=== PATIENT | male | born 1980 | race Caucasian/White ===

== ENCOUNTER 2019-10-17 05:50 | Emergency (ER) | payer MEDICARE ==
[2019-10-17 05:59] LABS: Glucose,Whole Blood 113 mg/dL (75-99)
[2019-10-17 06:11] VITALS: RESP 18
[2019-10-17 06:14] LABS: Basophils % (A) 1 %; Eosinophils # (A) 0.1 k/uL (0-0.7); Eosinophils % (A) 2 %; HCT 45.4 % (39.0-53.0); HGB 16.1 gm/dL (13.0-17.5); Lymphocytes # (A) 1.7 k/uL (1.0-4.8); Lymphocytes % (A) 36 %; MCH 31.3 pg (25.0-35.0); MCHC 35.5 g/dL (31.0-37.0); MCV 88.3 fL (80.0-100.0); Mean Platelet Volume 6.7; Monocytes # (A) 0.2 k/uL (0-1.0); Monocytes % (A) 5 %; Neutrophils # (A) 2.5 k/uL (1.3-7.7); Neutrophils % (A) 55 %; Platelet Count 163 k/uL (150-450); RBC 5.15 m/uL (4.30-5.90); RDW 13.6 % (11.5-15.5); WBC 4.6 k/uL (3.8-10.6)
[2019-10-17 06:29] LABS: INR 0.9 (<1.2)
[2019-10-17 06:30] LABS: Prothrombin Time 10.1 sec (9.0-12.0)
[2019-10-17 06:33] LABS: ALT 59 U/L (21-72); AST 46 U/L (17-59); African American GFR (CKD) >90 (>60 ml/min/1.73 sqM); Albumin 4.8 g/dL (3.5-5.0); Alkaline Phosphatase 53 U/L (38-126); Anion Gap 11 mmol/L; Blood Urea Nitrogen 22 mg/dL (9-20); Calcium 9.2 mg/dL (8.4-10.2); Carbon Dioxide 25 mmol/L (22-30); Chloride 109 mmol/L (98-107); Glucose 107 mg/dL (74-99); Non-African American GFR(CKD) 87 (>60 ml/min/1.73 sqM); Potassium 4.3 mmol/L (3.5-5.1); Sodium 145 mmol/L (137-145); Total Bilirubin 0.6 mg/dL (0.2-1.3); Total Protein 7.5 g/dL (6.3-8.2)
[2019-10-17 06:35] LABS: Alcohol 176 mg/dL
--- NOTE | 2019-10-17 06:38 | XR ---
EXAMINATION TYPE: XR pelvis AP view DATE OF EXAM: 10/17/2019 CLINICAL HISTORY: Trauma injury with pain. TECHNIQUE: A single AP view of the pelvis is obtained. COMPARISON: None. FINDINGS: There is no acute fracture/dislocation evident in the pelvis. The hip and sacroiliac join ts appear symmetric and unremarkable. Overlying pelvic phleboliths are present. Pubic symphysis is in tact. IMPRESSION: There is no acute fracture or dislocation in the pelvis.
--- NOTE | 2019-10-17 06:40 | XR ---
EXAMINATION TYPE: XR chest 1V portable DATE OF EXAM: 10/17/2019 COMPARISON: Chest x-ray September 20, 2017. HISTORY: Trauma injury with pain. TECHNIQUE: Single AP portable frontal upright view of the chest is obtained. FINDINGS: Overlying EKG leads are present. Slightly suboptimal with incomplete visualization of right lung apex. There is new right basilar linear atelectasis. Left lung is clear. No pleural effusion or pneumothorax is noted bilaterally. The cardiac silhouette size is within normal limits. The visua lized osseous structures are intact. IMPRESSION: New right basilar linear atelectasis.
--- NOTE | 2019-10-17 06:42 | CT ---
EXAMINATION TYPE: CT brain lisandro snider DATE OF EXAM: 10/17/2019 COMPARISON: NONE HISTORY: Fall downstairs injury with headache and neck pain. CT DLP: 1437.7 mGycm. Automated Exposure Control for Dose Reduction was Utilized. TECHNIQUE: CT scan of the head and cervical spine are performed without contrast. FINDINGS: There is no acute intracranial hemorrhage, mass effect, or midline shift identified. The ventricles and sulci are within normal limits in size. The globes are intact and the visualized sin uses are clear. The calvarium is intact. Cervical spine is visualized in its entirety from C1 through upper thoracic levels and demonstrates s traightened alignment without evidence of acute fracture or dislocation. Prevertebral soft tissue ap pears within normal limits. The C1-C2 articulation is within normal limits on the coronal images. Ve rtebral body heights and disc space heights are maintained. Spinal canal is preserved. Axial images w ithin normal limits. Lung apices show no pneumothorax. Thyroid gland within normal limits. Evidence o f prior surgery partially imaged in the right clavicle. IMPRESSION: 1. There is no acute fracture or dislocation evident in the cervical spine. 2. No acute intracranial hemorrhage, mass effect, or midline shift is seen.
[2019-10-17 07:14] LABS: Appearance,Urine Clear (Clear); Bilirubin,Urine Negative (Negative); Blood,Urine Small (Negative); Color,Urine Yellow; Glucose,Urine (UA) Negative (Negative); Ketones,Urine Negative (Negative); Leukocyte Esterase,Urine Negative (Negative); Nitrite,Urine Negative (Negative); PH, Urine 5.5 (5.0-8.0); Protein,Urine Trace (Negative); Specific Gravity,Urine 1.013 (1.001-1.035); Urobilinogen,Urine <2.0 mg/dL (<2.0); WBC,Urine <1 /hpf (0-5)
[2019-10-17] MEDS ORDERED: DIPH,PERTUS(ACELL)TETVAC-LF 0.5 ML VIAL IM ONE (07:25)
[2019-10-17] MEDS ORDERED: LIDOCAINE 1% INJ 10MG/ML (20 ML MDV) SQ ONE (07:25)
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
[2019-10-17 07:33] LABS: Amphetamine Screen,Urine Not Detected (NotDetected); Barbiturate Screen,Urine Not Detected (NotDetected); Benzodiazepines Screen,Urine Not Detected (NotDetected); Cocaine Screen,Urine Not Detected (NotDetected); Methadone Screen, Urine Not Detected (NotDetected); Opiate Screen,Urine Not Detected (NotDetected); Oxycodone Screen, Urine Not Detected (NotDetected); Phencyclidine Screen,Urine Not Detected (NotDetected); Tricyclic Antidepressant,Urine Detected (NotDetected); Urn Cannabinoid Scrn Not Detected (NotDetected)
--- NOTE | 2019-10-17 08:23 | XR ---
EXAMINATION TYPE: XR elbow complete RT DATE OF EXAM: 10/17/2019 CLINICAL HISTORY: Pain after fall injury. TECHNIQUE: Frontal, lateral and oblique images of the right elbow are obtained. COMPARISON: None FINDINGS: There is no acute fracture/dislocation evident in the right elbow. No abnormal fat pad si gns are seen. The overlying soft tissue appears unremarkable. IMPRESSION: There is no acute fracture or dislocation in the right elbow.
[2019-10-17] MEDS ORDERED: LABETALOL 5 MG/ML VIAL MDV IVP STA (08:55)
[2019-10-17 09:34] VITALS: BP 134/94; PULSE 90; TEMP 98.1
== END 2019-10-17 09:20 | disposition home or self-care (01) ==
LOC: EC 05:50
DX: S01.81XA Laceration without foreign body of other part of head, initial encounter (principal); F10.129 Alcohol abuse with intoxication, unspecified; M25.521 Pain in right elbow; F17.200 Nicotine dependence, unspecified, uncomplicated; Z23 Encounter for immunization; Z88.1 Allergy status to other antibiotic agents; Z88.0 Allergy status to penicillin; Z88.8 Allergy status to other drugs, medicaments and biological substances; W10.9XXA Fall (on) (from) unspecified stairs and steps, initial encounter
CPT/HCPCS: 99284 ×2; 12014 ×2; 96374 ×2; 90471 ×2; 36415; 86900; 86901; 80053; 83605; 84484; 85025; 85610; 85730; 86850; 81001; 80306; 72170; 73080; 71045; 72125; 70450; 90715; G0480; J2001; 80320

== ENCOUNTER 2019-12-22 20:44 | Emergency (ER) | payer MEDICARE ==
[2019-12-22 21:51] LABS: Basophils # (A) 0.1 k/uL (0-0.2); Basophils % (A) 1 %; Eosinophils # (A) 0.1 k/uL (0-0.7); Eosinophils % (A) 2 %; HCT 44.8 % (39.0-53.0); HGB 14.9 gm/dL (13.0-17.5); Lymphocytes # (A) 1.9 k/uL (1.0-4.8); Lymphocytes % (A) 35 %; MCHC 33.3 g/dL (31.0-37.0); MCV 90.1 fL (80.0-100.0); Mean Platelet Volume 7.6; Monocytes # (A) 0.3 k/uL (0-1.0); Monocytes % (A) 5 %; Neutrophils # (A) 2.9 k/uL (1.3-7.7); Neutrophils % (A) 55 %; Platelet Count 174 k/uL (150-450); RBC 4.97 m/uL (4.30-5.90); RDW 13.6 % (11.5-15.5); WBC 5.3 k/uL (3.8-10.6)
[2019-12-22 21:56] LABS: ALT 34 U/L (4-49); AST 33 U/L (17-59); African American GFR (CKD) >90 (>60 ml/min/1.73 sqM); Albumin 4.6 g/dL (3.5-5.0); Alkaline Phosphatase 65 U/L (38-126); Anion Gap 9 mmol/L; Blood Urea Nitrogen 26 mg/dL (9-20); Calcium 9.6 mg/dL (8.4-10.2); Carbon Dioxide 29 mmol/L (22-30); Chloride 104 mmol/L (98-107); Glucose 89 mg/dL (74-99); Magnesium 2.1 mg/dL (1.6-2.3); Non-African American GFR(CKD) 88 (>60 ml/min/1.73 sqM); Potassium 4.1 mmol/L (3.5-5.1); Sodium 142 mmol/L (137-145); Total Bilirubin 0.5 mg/dL (0.2-1.3); Total Protein 7.4 g/dL (6.3-8.2)
[2019-12-22 21:59] LABS: Partial Thromboplastin Time 25.1 sec (22.0-30.0)
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
--- NOTE | 2019-12-22 22:02 | XR ---
EXAMINATION TYPE: XR chest 2V DATE OF EXAM: 12/22/2019 COMPARISON: 10/09/2019 HISTORY: Trauma pain TECHNIQUE: 2 views FINDINGS: Heart and mediastinum are normal. Lungs are clear. Diaphragm is normal. Bony thorax is inta ct. There is old right clavicle fracture. IMPRESSION: No active cardiopulmonary disease. Normal heart. No change.
[2019-12-22] MEDS ORDERED: cloNIDine HCL 0.1 MG TAB PO STA (22:26)
[2019-12-22] MEDS ORDERED: ENALAPRILAT 1.25 MG/ML 1 ML VIAL IVP STA (23:15)
[2019-12-23 01:13] VITALS: BP 154/100; PULSE 77; RESP 18; TEMP 97.4
== END 2019-12-23 01:12 | disposition home or self-care (01) ==
LOC: EC 20:44
DX: I11.9 Hypertensive heart disease without heart failure (principal); G83.21 Monoplegia of upper limb affecting right dominant side; F17.200 Nicotine dependence, unspecified, uncomplicated; Z79.899 Other long term (current) drug therapy; Z88.0 Allergy status to penicillin; Z88.8 Allergy status to other drugs, medicaments and biological substances; Z91.018 Allergy to other foods
CPT/HCPCS: 36415; 71046; 80053; 83690; 83735; 83880; 84484; 85025; 85610; 85730; 93005; 96374; 99285

== ENCOUNTER 2021-07-14 04:15 | Emergency (ER) | payer MEDICARE ==
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
[2021-07-14 04:26] VITALS: BP 145/91; PULSE 86; RESP 20; TEMP 98.2
--- NOTE | 2021-07-14 04:54 | XR ---
EXAMINATION TYPE: XR ankle complete RT DATE OF EXAM: 07/14/2021 COMPARISON: None HISTORY: Pain TECHNIQUE: 3 views FINDINGS: There is soft tissue swelling over the lateral malleolus. Ankle mortise is anatomic. I see no fracture. IMPRESSION: Soft tissue swelling. No fracture seen.
[2021-07-14] MEDS ORDERED: IBUPROFEN 600 MG STARTER PACK 4 TAB BTL PO STA (05:01)
== END 2021-07-14 05:15 | disposition home or self-care (01) ==
LOC: EC 04:15
DX: S93.401A Sprain of unspecified ligament of right ankle, initial encounter (principal); I10 Essential (primary) hypertension; M06.9 Rheumatoid arthritis, unspecified; F17.200 Nicotine dependence, unspecified, uncomplicated; Z88.0 Allergy status to penicillin; Z79.899 Other long term (current) drug therapy; X50.1XXA Overexertion from prolonged static or awkward postures, initial encounter; Y92.009 Unspecified place in unspecified non-institutional (private) residence as the place of occurrence of the external cause; Y93.02 Activity, running
CPT/HCPCS: 99283

== ENCOUNTER 2021-09-01 10:39 | Observation (INO) | payer MEDICARE ==
[2021-09-01] MEDS ORDERED: SODIUM CHLORIDE 0.9% 1,000 ML IV STA (11:27)
[2021-09-01] MEDS ORDERED: ASPIRIN 81 MG PO STA (11:27)
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
[2021-09-01 12:23] LABS: Prothrombin Time 10.5 sec (9.0-12.0)
[2021-09-01 12:24] LABS: ALT 106 U/L (4-49); AST 121 U/L (17-59); African American GFR (CKD) >90 (>60 ml/min/1.73 sqM); Albumin 4.8 g/dL (3.5-5.0); Alkaline Phosphatase 75 U/L (38-126); Amylase 51 U/L (30-110); Anion Gap 11 mmol/L; Blood Urea Nitrogen 15 mg/dL (9-20); Calcium 9.9 mg/dL (8.4-10.2); Carbon Dioxide 24 mmol/L (22-30); Chloride 105 mmol/L (98-107); Glucose 118 mg/dL (74-99); Lipase 405 U/L (23-300); Magnesium 1.8 mg/dL (1.6-2.3); Non-African American GFR(CKD) >90 (>60 ml/min/1.73 sqM); Potassium 3.6 mmol/L (3.5-5.1); Sodium 140 mmol/L (137-145); Total Bilirubin 1.5 mg/dL (0.2-1.3); Total Protein 7.7 g/dL (6.3-8.2)
--- NOTE | 2021-09-01 12:29 | XR ---
EXAMINATION TYPE: XR chest 2V DATE OF EXAM: 09/01/2021 COMPARISON: 12/22/2019 TECHNIQUE: PA and lateral views submitted. HISTORY: Chest pain FINDINGS: The lungs are clear and there is no pneumothorax, pleural effusion, or focal pneumonia. Postsurgica l change involving the right clavicle. Heart size normal. Hyperinflation suggests COPD. No overt fail ure. IMPRESSION: 1. No acute process.
[2021-09-01 12:56] LABS: Basophils % (A) 1 %; Eosinophils % (A) 1 %; HCT 43.3 % (39.0-53.0); HGB 15.3 gm/dL (13.0-17.5); Hyperchromasia Slight; Lymphocytes # (A) 1.2 k/uL (1.0-4.8); Lymphocytes % (A) 28 %; MCH 32.9 pg (25.0-35.0); MCHC 35.4 g/dL (31.0-37.0); MCV 92.9 fL (80.0-100.0); Mean Platelet Volume 7.5; Monocytes # (A) 0.3 k/uL (0-1.0); Monocytes % (A) 6 %; Neutrophils # (A) 2.6 k/uL (1.3-7.7); Neutrophils % (A) 63 %; Platelet Count 166 k/uL (150-450); RBC 4.67 m/uL (4.30-5.90); WBC 4.2 k/uL (3.8-10.6)
[2021-09-01] MEDS ORDERED: NITROGLYCERIN OINT 1 INCH/GM PACKET TOPICAL STA (13:32)
[2021-09-01] MEDS ORDERED: NALOXONE 0.4 MG/ML 1 ML VIAL IV PRN ×2 (13:34→13:35)
[2021-09-01] MEDS ORDERED: LORazepam 2 MG/ML INJ IV PRN ×2 (15:12)
[2021-09-01] MEDS ORDERED: THIAMINE 100 MG/ML 2 ML VIAL IM STA (15:12)
[2021-09-01] MEDS ORDERED: IPRATROPIUM-ALBUTEROL 3 ML NEB INHALATION PRN (15:13)
[2021-09-01] MEDS: SODIUM CHLORIDE 0.9% 1,000 ML IV SCH ×2 (15:35→21:28)
[2021-09-01] MEDS: hydrALAZINE HCL 25 MG TAB PO PRN (16:13)
[2021-09-01] MEDS: LORazepam 2 MG/ML INJ IV PRN (17:04)
[2021-09-01] MEDS: THIAMINE 100 MG TAB PO SCH (17:14)
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
[2021-09-01] MEDS: SYMBICORT 80-4.5 MCG INHALER INHALATION SCH (21:18)
[2021-09-01] MEDS: ATORVASTATIN 40 MG TAB PO SCH (21:25)
[2021-09-01] MEDS: lisinopriL 20 MG TAB PO SCH (21:26)
[2021-09-01] MEDS: amLODIPine 5 MG TAB PO SCH (21:26)
[2021-09-01] MEDS: METOPROLOL TARTRATE 50 MG TAB PO SCH (21:35)
[2021-09-02] MEDS: ACETAMINOPHEN TAB 325 MG TAB PO PRN ×2 (02:11→08:40)
[2021-09-02] MEDS: SODIUM CHLORIDE 0.9% 1,000 ML IV SCH ×3 (07:04→21:30)
[2021-09-02] MEDS: MULTIVITAMINS, THERA 1 EACH TAB PO SCH (08:00)
[2021-09-02] MEDS: THIAMINE 100 MG TAB PO SCH ×2 (08:01→17:31)
[2021-09-02] MEDS: METOPROLOL TARTRATE 50 MG TAB PO SCH ×2 (08:01→19:48)
[2021-09-02] MEDS: FOLIC ACID 1 MG TAB PO SCH (08:02)
[2021-09-02] MEDS: amLODIPine 5 MG TAB PO SCH ×2 (08:02→19:48)
[2021-09-02] MEDS: NICOTINE 21MG/24HR PATCH TRANSDERM SCH (08:02)
[2021-09-02] MEDS: prednisoLONE ACETATE 1% OPHTH DROPS 5 ML BTL LEFT EYE SCH ×2 (08:39→19:49)
--- NOTE | 2021-09-02 08:57 | ECHOF ---
Referral Reason:Chest Pain MEASUREMENTS -------- HEIGHT: 180.3 cm WEIGHT: 90.7 kg BP: 168/113 RVIDd: 3.1 cm (< 3.3) IVSd: 1.0 cm (0.6 - 1.1) LVIDd: 5.2 cm (3.9 - 5.3) LVPWd: 0.8 cm (0.6 - 1.1) IVSs: 1.7 cm LVIDs: 3.1 cm LVPWs: 1.8 cm LA Diam: 3.2 cm (2.7 - 3.8) LAESV Index (A-L): 18.89 ml/m Ao Diam: 2.9 cm (2.0 - 3.7) AV Cusp: 2.4 cm (1.5 - 2.6) MV EXCURSION: 22.473 mm (> 18.000) MV EF SLOPE: 192 mm/s (70 - 150) EPSS: 0.5 cm MV E Bart: 0.76 m/s MV DecT: 174 ms MV A Bart: 0.78 m/s MV E/A Ratio: 0.98 FINDINGS -------- Sinus rhythm. This was a technically good study. The left ventricular size is normal. Left ventricular wall thickness is normal. Overall left vent ricular systolic function is normal with, an EF between 55 - 60 %. The right ventricle is normal in size. Normal LA size by volume 22+/-6 ml/m2. The right atrium is normal in size. Interatrial and interventricular septum intact. The aortic valve is trileaflet, and appears structurally normal. No aortic stenosis or regurgitation. There is trace to mild mitral regurgitation. The tricuspid valve appears structurally normal. Trace/mild (physiologic) pulmonic regurgitation. The aortic root size is normal. Normal inferior vena cava with normal inspiratory collapse consistent with estimated right atrial pre ssure of 5 mmHg. There is no pericardial effusion. CONCLUSIONS -------- 1. The left ventricular size is normal. 2. Left ventricular wall thickness is normal. 3. Overall left ventricular systolic function is normal with, an EF between 55 - 60 %. 4. The aortic valve is trileaflet, and appears structurally normal. No aortic stenosis or regurgitati on. 5. There is trace to mild mitral regurgitation. 6. Trace/mild (physiologic) pulmonic regurgitation. 7. There is no pericardial effusion. KEG HEADER: Sara Lundberg RDCS
[2021-09-02] MEDS ORDERED: ASPIRIN 81 MG PO SCH (09:00)
[2021-09-02] MEDS: SYMBICORT 80-4.5 MCG INHALER INHALATION SCH ×2 (09:09→20:09)
[2021-09-02 09:56] LABS: Basophils # (A) 0.02 X 10*3/uL (0.00-0.10); Basophils % (A) 0.7 %; Eosinophils # (A) 0.03 X 10*3/uL (0.04-0.35); HGB 13.8 g/dL (13.0-17.0); Lymphocytes # (A) 0.89 X 10*3/uL (0.90-5.00); Lymphocytes % (A) 29.8 %; MCH 32.6 pg (27.0-32.0); MCHC 35.4 g/dL (32.0-37.0); MCV 92.2 fL (80.0-97.0); Mean Platelet Volume 10.2 fL (9.5-12.2); Monocytes # (A) 0.21 X 10*3/uL (0.20-1.00); Neutrophils # (A) 1.82 X 10*3/uL (1.80-7.70); Neutrophils % (A) 60.8 %; Platelet Count 136 X 10*3/uL (140-440); RBC 4.23 X 10*6/uL (4.40-5.60); RDW 12.6 % (11.5-14.5); WBC 2.99 X 10*3/uL (4.50-10.00)
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
[2021-09-02 10:22] LABS: African American GFR (CKD) 116.8 (60.0-200.0); BUN/Creat Ratio 11.17 Ratio (12.00-20.00); Blood Urea Nitrogen 10.4 mg/dL (9.0-27.0); Calcium 9.2 mg/dL (8.7-10.3); Carbon Dioxide 25.3 mmol/L (21.6-31.8); Chol/HDL Ratio 4.25 Ratio; HDL Cholesterol 36.9 mg/dL (40.00-60.00); LDL Cholesterol,Calculated 40.5 mg/dL (0.0-131.0); Magnesium 1.9 mg/dL (1.5-2.4); Non-African American GFR(CKD) 100.8 (60.0-200.0); Potassium 3.4 mmol/L (3.5-5.5); VLDL Calculation 79.6 mg/dL (5.00-40.00)
--- NOTE | 2021-09-02 13:53 | P.PN ---
Subjective Progress Note Date: 09/02/21 No new complaints today. Patient's blood pressure has improved. Alcohol withdrawal appears to be controlled. ACS is ruled out. We'll continue to monitor for 1 more day to ensure adequate blood pressure control prior to discharge Objective - Vital Signs Vital signs: Vital Signs Temp 98.0 F 09/02/21 07:00 Pulse 96 09/02/21 07:00 Resp 17 09/02/21 07:00 BP 149/99 09/02/21 07:00 Pulse Ox 96 09/02/21 13:35 Intake & Output 09/01/21 09/02/21 09/02/21 18:59 06:59 18:59 Intake Total 520 Balance 520 Weight 90.718 kg Intake: Intake, IV Titration 520 Amount Sodium Chloride 0.9% 1, 520 000 ml @ 130 mls/hr IV . Q7H42M [facility] Rx#:[id number] Other: Voiding Method Toilet Toilet Urinal Urinal # Voids 1 2 3 - Exam Gen: awake, alert HEENT: normocephalic, atraumatic, good hearing acuity, moist mucous membranes Resp: Diminished air exchange, quiet lung sounds, areas of end expiratory wheezing, not diffuse, no crackles CVS: good distal perfusion x 4, regular rate and rhythm without murmurs GI: soft, NTTP, ND : no SPT, no CVAT, galdamez catheter not present MSK: no pitting edema, no clubbing Neuro: non-focal, moving all extremities Psych: cooperative, euthymic mood - Labs CBC & Chem 7: 09/02/21 06:23 09/02/21 06:23 Labs: Abnormal Lab Results - Last 24 Hours (Table) 09/02/21 09/02/21 Range/Units 06:23 06:23 WBC 2.99 L (4.50-10.00) X 10*3/uL RBC 4.23 L (4.40-5.60) X 10*6/uL Hct 39.0 L (39.6-50.0) % MCH 32.6 H (27.0-32.0) pg Plt Count 136 L (140-440) X 10*3/uL Lymphocytes # 0.89 L (0.90-5.00) X 10*3/uL Eosinophils # 0.03 L (0.04-0.35) X 10*3/uL Potassium 3.4 L (3.5-5.5) mmol/L Anion Gap 13.00 H (4.00-12.00) mmol/L BUN/Creatinine Ratio 11.17 L (12.00-20.00) Ratio Triglycerides 398.00 H (0.00-149.00) mg/dL VLDL Cholesterol, Calc 79.60 H (5.00-40.00) mg/dL HDL Cholesterol 36.90 L (40.00-60.00) mg/dL Assessment and Plan Assessment: Chest pain, atypical Hypertensive urgency -Admit inpatient, telemetry -Cardiology consult -Resume home medications for blood pressure -Hydralazine when necessary -Trend troponins -EKG/nitro as needed for chest pain -Hold off on any heparin drip, Plavix -Continue metoprolol -Aspirin, statin -Treated alcohol withdrawal as below Alcohol withdrawal syndrome Alcohol abuse disorder, moderate to severe Elevated Liver Enzymes -[facility] protocol -Ativan when necessary -Thiamine, folate, multivitamin COPD without exacerbation Nicotine abuse -Nicotine patch, cessation counseling provided -DuoNeb's when necessary -We'll hold off on steroids due to their effect on blood pressure -Start Symbicort twice a day Patient is a full code
[2021-09-02] MEDS ORDERED: NICOTINE GUM (POLACRILEX) 2 MG GUM BUCCAL PRN (14:33)
[2021-09-02] MEDS: LORazepam 2 MG/ML INJ IV PRN (17:34)
[2021-09-02] MEDS: lisinopriL 20 MG TAB PO SCH (19:48)
[2021-09-02] MEDS: ATORVASTATIN 40 MG TAB PO SCH (19:48)
[2021-09-02 21:30] VITALS: RESP 18
[2021-09-03] MEDS: hydrALAZINE HCL 25 MG TAB PO PRN (01:10)
[2021-09-03 02:05] VITALS: TEMP 98.2
[2021-09-03] MEDS: SODIUM CHLORIDE 0.9% 1,000 ML IV SCH (05:02)
[2021-09-03] MEDS: SYMBICORT 80-4.5 MCG INHALER INHALATION SCH (08:08)
[2021-09-03 08:15] VITALS: PULSE 99
[2021-09-03] MEDS: THIAMINE 100 MG TAB PO SCH (08:18)
[2021-09-03] MEDS: FOLIC ACID 1 MG TAB PO SCH (08:18)
[2021-09-03] MEDS: amLODIPine 5 MG TAB PO SCH (08:18)
[2021-09-03] MEDS: MULTIVITAMINS, THERA 1 EACH TAB PO SCH (08:18)
[2021-09-03] MEDS: ACETAMINOPHEN TAB 325 MG TAB PO PRN (08:18)
[2021-09-03] MEDS: NICOTINE 21MG/24HR PATCH TRANSDERM SCH (08:18)
[2021-09-03] MEDS: METOPROLOL TARTRATE 50 MG TAB PO SCH (08:18)
[2021-09-03] MEDS: prednisoLONE ACETATE 1% OPHTH DROPS 5 ML BTL LEFT EYE SCH (08:19)
[2021-09-03] MEDS ORDERED: hydrALAZINE HCL 25 MG TAB PO SCH (09:00)
[2021-09-03] MEDS ORDERED: hydroCHLOROthiazide 12.5 MG CAP PO SCH (09:00)
[2021-09-03 10:00] VITALS: BP 162/68
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
--- NOTE | 2021-09-03 17:10 | P.DS ---
Providers Date of admission: 09/01/21 13:36 Expected date of discharge: 09/03/21 Attending physician: Lucila Yañez MD Consults: 09/01/21 13:35 Consult Physician Urgent Consulting Provider: Saroj Healy Consult Reason/Comments: chest pain/HTN Do you want consulting provider notified?: Yes Primary care physician: Morris Sheehan MD Hospital Course: Chest pain, atypical Hypertensive urgency -Admitted inpatient, telemetry with cardiology consult. Troponins were negative. BP meds from home including lisinopril, amlodipine, and metoprolol were restarted. Hydralazine was given when necessary. HCTZ was initiated as well for BP control. Pt was discharged home with cardiology follow up with these medication changes. BP was better controlled, but still not well controlled. Also started on statin on discharge per ASCVD guidelines. Alcohol withdrawal syndrome Alcohol abuse disorder, moderate to severe Elevated Liver Enzymes -[facility] protocol + ativan when necessary; however, patient did not require benzos. Pt started on thiamine, folate, and MVI for 14 days on discharge. -Ativan when necessary -Thiamine, folate, multivitamin COPD without exacerbation Nicotine abuse -Nicotine patch, cessation counseling provided while in house. Discharged on symbicort twice a day. WIll need pulmonary follow up, and patient was advised of this. Assessment: Gen: awake, alert HEENT: normocephalic, atraumatic, good hearing acuity, moist mucous membranes Resp: Diminished air exchange, quiet lung sounds, areas of end expiratory wheezing, not diffuse, no crackles CVS: good distal perfusion x 4, regular rate and rhythm without murmurs GI: soft, NTTP, ND : no SPT, no CVAT, galdamez catheter not present MSK: no pitting edema, no clubbing Neuro: non-focal, moving all extremities Psych: cooperative, euthymic mood Patient Condition at Discharge: Good Plan - Discharge Summary Discharge Rx Participant: No New Discharge Prescriptions: New Multivitamins, Thera [Multivitamin (formulary)] 1 each PO DAILY #14 tab Thiamine [Vitamin B-1] 100 mg PO BID-W/MEALS #28 tab Folic Acid 1 mg PO DAILY #14 tab hydroCHLOROthiazide [Hydrodiuril] 12.5 mg PO DAILY #30 cap Atorvastatin [Lipitor] 40 mg PO HS #30 tab Budesonide/Formoterol Fumarate [Symbicort 80-4.5 Mcg Inhaler] 2 puff INHALATION BID #10.8 gm Continue lisinopriL 40 mg PO HS amLODIPine [Norvasc] 5 mg PO BID Metoprolol Tartrate [Lopressor] 100 mg PO BID prednisoLONE ACETATE 1% OPHTH [Pred Forte 1%] 1 drops LEFT EYE BID Discharge Medication List Metoprolol Tartrate [Lopressor] 100 mg PO BID 09/01/21 [History] amLODIPine [Norvasc] 5 mg PO BID 09/01/21 [History] lisinopriL 40 mg PO HS 09/01/21 [History] prednisoLONE ACETATE 1% OPHTH [Pred Forte 1%] 1 drops LEFT EYE BID 09/01/21 [History] Atorvastatin [Lipitor] 40 mg PO HS #30 tab 09/03/21 [Rx] Budesonide/Formoterol Fumarate [Symbicort 80-4.5 Mcg Inhaler] 2 puff INHALATION BID #10.8 gm 09/03/21 [Rx] Folic Acid 1 mg PO DAILY #14 tab 09/03/21 [Rx] Multivitamins, Thera [Multivitamin (formulary)] 1 each PO DAILY #14 tab 09/03/21 [Rx] Thiamine [Vitamin B-1] 100 mg PO BID-W/MEALS #28 tab 09/03/21 [Rx] hydroCHLOROthiazide [Hydrodiuril] 12.5 mg PO DAILY #30 cap 09/03/21 [Rx] Follow up Appointment(s)/Referral(s): Morris Sheehan MD [Primary Care Provider] - 1-2 days Crys Rivera MD [STAFF PHYSICIAN] - 09/20/21 3:45 am ([facility]) Patient Instructions/Handouts: Alcohol Withdrawal (GEN) Discharge Disposition: HOME SELF-CARE
== END 2021-09-03 11:30 | disposition home or self-care (01) ==
LOC: EC 10:39 → 6NMEDSUR 13:36
PROVIDERS: ADMIT Internal Medicine; ATTEND Internal Medicine
DX: F10.239 Alcohol dependence with withdrawal, unspecified (principal); I16.0 Hypertensive urgency; R74.8 Abnormal levels of other serum enzymes; R07.89 Other chest pain; J44.9 Chronic obstructive pulmonary disease, unspecified; Z20.822 Contact with and (suspected) exposure to COVID-19; H54.8 Legal blindness, as defined in USA; G83.21 Monoplegia of upper limb affecting right dominant side; F90.9 Attention-deficit hyperactivity disorder, unspecified type; I10 Essential (primary) hypertension; I42.8 Other cardiomyopathies; F17.210 Nicotine dependence, cigarettes, uncomplicated; K21.9 Gastro-esophageal reflux disease without esophagitis; M06.9 Rheumatoid arthritis, unspecified; Z79.899 Other long term (current) drug therapy; Z88.0 Allergy status to penicillin; Z91.018 Allergy to other foods; Z88.8 Allergy status to other drugs, medicaments and biological substances; Z71.6 Tobacco abuse counseling; V86.55XS Driver of 3- or 4- wheeled all-terrain vehicle (ATV) injured in nontraffic accident, sequela; Z87.820 Personal history of traumatic brain injury; Z82.49 Family history of ischemic heart disease and other diseases of the circulatory system
CPT/HCPCS: 99285; 96374; 96372; 96361 ×2; 96376; 36415; 94640 ×4; 93005; 93306; 80061; 80053; 80048; 84443; 82150; 83690; 83735 ×2; 84484; 85025 ×2; 85610; 85730; 83036; 87635; 71046; G0378 ×3; J2060 ×2; J3411

== ENCOUNTER 2021-11-17 19:59 | Emergency (ER) | payer MEDICARE ==
[2021-11-17 20:20] VITALS: BP 138/95; PULSE 84; RESP 16; TEMP 98.8
[2021-11-17 20:47] LABS: Basophils % (A) 0 %; Eosinophils % (A) 0 %; HCT 47.9 % (39.0-53.0); HGB 17.1 gm/dL (13.0-17.5); Lymphocytes # (A) 1.7 k/uL (1.0-4.8); Lymphocytes % (A) 33 %; MCHC 35.8 g/dL (31.0-37.0); MCV 95.1 fL (80.0-100.0); Mean Platelet Volume 7.8; Monocytes # (A) 0.4 k/uL (0-1.0); Monocytes % (A) 7 %; Neutrophils # (A) 2.8 k/uL (1.3-7.7); Neutrophils % (A) 56 %; Platelet Count 209 k/uL (150-450); RBC 5.04 m/uL (4.30-5.90); RDW 13.2 % (11.5-15.5); WBC 5.1 k/uL (3.8-10.6)
[2021-11-17 20:58] LABS: Partial Thromboplastin Time 25.2 sec (22.0-30.0); Prothrombin Time 10.5 sec (9.0-12.0)
[2021-11-17 20:59] LABS: Albumin 4.5 g/dL (3.5-5.0); Magnesium 2.5 mg/dL (1.6-2.3); Potassium 4.6 mmol/L (3.5-5.1); Total Bilirubin 0.9 mg/dL (0.2-1.3); Total Protein 7.9 g/dL (6.3-8.2)
[2021-11-17] MEDS ORDERED: PANTOPRAZOLE 40 MG/10 ML VIAL IVP STA (21:01)
--- NOTE | 2021-11-17 21:46 | XR ---
EXAMINATION TYPE: XR chest 2V DATE OF EXAM: 11/17/2021 COMPARISON: 09/01/2021 HISTORY: Chest pain TECHNIQUE: Frontal and lateral views of the chest are obtained. FINDINGS: There is no focal air space opacity. No evidence for pneumothorax. No pleural effusion. The cardiac silhouette size is within normal limits. The osseous structures are grossly intact. IMPRESSION: 1. No acute cardiopulmonary process.
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
[2021-11-17] MEDS ORDERED: LORazepam 2 MG/ML INJ IV STA (22:27)
== END 2021-11-17 22:41 | disposition home or self-care (01) ==
LOC: EC 19:59
DX: R07.9 Chest pain, unspecified (principal); F10.129 Alcohol abuse with intoxication, unspecified; I10 Essential (primary) hypertension; J44.9 Chronic obstructive pulmonary disease, unspecified; K21.9 Gastro-esophageal reflux disease without esophagitis; M06.9 Rheumatoid arthritis, unspecified; F17.200 Nicotine dependence, unspecified, uncomplicated; Z79.899 Other long term (current) drug therapy
CPT/HCPCS: 82075; 36415; 93005; 80053; 83735; 84484; 85025; 85610; 85730; 71046; 99285; 96374; 96375; J2060; C9113

== ENCOUNTER 2021-11-25 20:41 | Emergency (ER) | payer MEDICARE ==
[2021-11-25 20:51] VITALS: RESP 18; TEMP 97.7
[2021-11-25 21:12] LABS: INR 1.1 (<1.2); Prothrombin Time 11.2 sec (9.0-12.0)
[2021-11-25 21:16] LABS: Albumin 4.1 g/dL (3.5-5.0); Calcium 8.5 mg/dL (8.4-10.2); Potassium 4.3 mmol/L (3.5-5.1); Total Bilirubin 0.7 mg/dL (0.2-1.3); Total Protein 7.1 g/dL (6.3-8.2)
[2021-11-25 21:23] LABS: HGB 15.9 gm/dL (13.0-17.5); MCH 34.2 pg (25.0-35.0); MCHC 34.5 g/dL (31.0-37.0); MCV 98.9 fL (80.0-100.0); Mean Platelet Volume 7.1; Platelet Count 133 k/uL (150-450); RBC 4.66 m/uL (4.30-5.90); RDW 13.2 % (11.5-15.5); WBC 2.7 k/uL (3.8-10.6)
[2021-11-25 21:34] LABS: Lymphocytes # (M) 1.32 k/uL (1.0-4.8); Monocytes # (M) 0.14 k/uL (0-1.0); Neutrophils # (M) 1.24 k/uL (1.3-7.7); Neutrophils % (M) 46 %; Nucleated Red Blood Cells 0 /100 WBC (0-0); Polychromasia Present; Total Cells Counted 100
[2021-11-25] MEDS ORDERED: NICOTINE 21MG/24HR PATCH TRANSDERM STA (22:27)
[2021-11-25] MEDS ORDERED: LORazepam 2 MG/ML INJ IV PRN (22:38)
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
[2021-11-26 00:20] VITALS: BP 125/92; PULSE 105
== END 2021-11-26 01:02 | disposition home or self-care (01) ==
LOC: EC 20:41
DX: F10.129 Alcohol abuse with intoxication, unspecified (principal); J44.9 Chronic obstructive pulmonary disease, unspecified; K21.9 Gastro-esophageal reflux disease without esophagitis; I10 Essential (primary) hypertension; F90.9 Attention-deficit hyperactivity disorder, unspecified type; F17.200 Nicotine dependence, unspecified, uncomplicated; Z88.0 Allergy status to penicillin; Y90.8 Blood alcohol level of 240 mg/100 ml or more
CPT/HCPCS: 99284; 96374; 36415; 80053; 85025; 85610; G0480; S4990; J2060; 80320

== ENCOUNTER 2023-05-02 09:43 | Inpatient (IN) | payer MEDICARE ==
[2023-05-02 12:14] LABS: Amphetamine Screen,Urine Not Detected (NotDetected); Barbiturate Screen,Urine Not Detected (NotDetected); Benzodiazepines Screen,Urine Detected (NotDetected); Cocaine Screen,Urine Not Detected (NotDetected); Methadone Screen, Urine Not Detected (NotDetected); Opiate Screen,Urine Not Detected (NotDetected); Oxycodone Screen, Urine Not Detected (NotDetected); Phencyclidine Screen,Urine Not Detected (NotDetected); Tricyclic Antidepressant,Urine Not Detected (NotDetected); Urn Cannabinoid Scrn Detected (NotDetected)
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
[2023-05-02] MEDS ORDERED: NICOTINE 14MG/24HR PATCH TRANSDERM STA (15:23)
[2023-05-02] MEDS ORDERED: LORazepam 2 MG/ML INJ IV PRN ×3 (16:59)
[2023-05-02] MEDS ORDERED: THIAMINE 100 MG/ML 2 ML VIAL IM STA (16:59)
[2023-05-02] MEDS ORDERED: ACETAMINOPHEN TAB 325 MG TAB PO PRN (20:46)
[2023-05-02] MEDS ORDERED: IBUPROFEN 600 MG TAB PO PRN (20:46)
[2023-05-02] MEDS ORDERED: OLANZapine 10 MG VIAL IM PRN (20:46)
[2023-05-02] MEDS ORDERED: MAGNESIUM HYDROXIDE 2,400 MG/10 ML CUP PO PRN (20:46)
[2023-05-02] MEDS ORDERED: OLANZapine 5 MG TAB PO PRN (20:46)
[2023-05-02] MEDS ORDERED: LORazepam 2 MG/ML INJ IM PRN (20:46)
[2023-05-02] MEDS ORDERED: LORazepam 1 MG TAB PO PRN ×2 (21:02)
[2023-05-02] MEDS: prednisoLONE ACETATE 1% OPHTH DROPS 5 ML BTL BOTH EYES SCH (22:07)
[2023-05-02] MEDS: chlordiazePOXIDE 25 MG CAP PO SCH (22:07)
[2023-05-02] MEDS: METOPROLOL TARTRATE 50 MG TAB PO SCH (22:07)
[2023-05-02] MEDS: LORazepam 1 MG TAB PO PRN (22:09)
[2023-05-03] MEDS: NICOTINE 14MG/24HR PATCH TRANSDERM SCH (04:25)
[2023-05-03] MEDS ORDERED: ALBUTEROL INHALER 60 PUFF/8 GM INHALER (MHU) INHALATION PRN (05:11)
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
[2023-05-03] MEDS: lisinopriL 20 MG TAB PO SCH (06:44)
[2023-05-03] MEDS: amLODIPine 10 MG TAB PO SCH (06:44)
[2023-05-03] MEDS: METOPROLOL TARTRATE 50 MG TAB PO SCH ×2 (06:44→22:06)
[2023-05-03 06:51] LABS: Basophils % (A) 1 %; Eosinophils # (A) 0.1 k/uL (0-0.7); Eosinophils % (A) 1 %; HCT 46.7 % (39.0-53.0); HGB 15.7 gm/dL (13.0-17.5); Lymphocytes # (A) 0.9 k/uL (1.0-4.8); Lymphocytes % (A) 21 %; MCH 31.3 pg (25.0-35.0); MCHC 33.6 g/dL (31.0-37.0); MCV 93.4 fL (80.0-100.0); Mean Platelet Volume 8.4; Monocytes # (A) 0.2 k/uL (0-1.0); Monocytes % (A) 6 %; Neutrophils # (A) 2.8 k/uL (1.3-7.7); Neutrophils % (A) 69 %; Platelet Count 105 k/uL (150-450); RDW 13.3 % (11.5-15.5)
[2023-05-03 06:59] LABS: ALT 136 U/L (4-49); AST 107 U/L (17-59); African American GFR (CKD) >90 (>60 ml/min/1.73 sqM); Albumin 4.5 g/dL (3.5-5.0); Alkaline Phosphatase 55 U/L (38-126); Anion Gap 7 mmol/L; Blood Urea Nitrogen 20 mg/dL (9-20); Calcium 9.6 mg/dL (8.4-10.2); Carbon Dioxide 34 mmol/L (22-30); Chloride 100 mmol/L (98-107); Glucose 89 mg/dL (74-99); Non-African American GFR(CKD) >90 (>60 ml/min/1.73 sqM); Sodium 141 mmol/L (137-145); Total Bilirubin 1.4 mg/dL (0.2-1.3); Total Protein 7.3 g/dL (6.3-8.2)
[2023-05-03] MEDS ORDERED: CITALOPRAM HYDROBROMIDE 10 MG TAB PO SCH (09:00)
[2023-05-03] MEDS ORDERED: THIAMINE 100 MG TAB PO SCH (09:00)
[2023-05-03] MEDS: chlordiazePOXIDE 25 MG CAP PO SCH ×3 (09:25→22:07)
[2023-05-03] MEDS: prednisoLONE ACETATE 1% OPHTH DROPS 5 ML BTL BOTH EYES SCH ×2 (09:25→22:07)
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
[2023-05-03 16:44] LABS: Chol/HDL Ratio 2.24 Ratio; LDL Cholesterol,Calculated 44.2 mg/dL (0.0-131.0)
[2023-05-03] MEDS ORDERED: chlordiazePOXIDE 25 MG CAP PO SCH (18:00)
[2023-05-03] MEDS: LORazepam 1 MG TAB PO PRN (18:03)
[2023-05-03] MEDS: OLANZapine 2.5 MG TAB PO SCH (22:07)
[2023-05-04] MEDS: chlordiazePOXIDE 25 MG CAP PO SCH (08:39)
[2023-05-04] MEDS: MULTIVITAMINS, THERA 1 EACH TAB PO SCH (08:39)
[2023-05-04] MEDS: FOLIC ACID 1 MG TAB PO SCH (08:39)
[2023-05-04] MEDS: lisinopriL 20 MG TAB PO SCH (08:39)
[2023-05-04] MEDS: METOPROLOL TARTRATE 50 MG TAB PO SCH ×2 (08:39→20:37)
[2023-05-04] MEDS: NICOTINE 14MG/24HR PATCH TRANSDERM SCH (08:39)
[2023-05-04] MEDS: CITALOPRAM HYDROBROMIDE 20 MG TAB PO SCH (08:39)
[2023-05-04] MEDS: amLODIPine 10 MG TAB PO SCH (08:39)
[2023-05-04] MEDS: prednisoLONE ACETATE 1% OPHTH DROPS 5 ML BTL BOTH EYES SCH ×2 (08:40→20:45)
--- NOTE | 2023-05-04 10:26 | P.PN ---
Progress Note - Text Progress Note Date: 05/04/23 Interval History: Patient was seen sitting in on group this morning and was directable and agree able to speak with machine sign writer in the office. Patient appears to have mild improvement in his hygiene and grooming today. He continues to have an intense stare. He offered no overnight complaints and states that he slept fairly well. He claims that the hallucinations have decreased significantly. He claims that he saw having some minor withdrawal symptoms and showed machine sign writer some tremors in his hands. We spoke about the need to monitor his vitals and also continue decreasing the scheduled Librium to avoid severe withdrawals as patient has a history of this and patient agreed. He claims that he has been trying to go to groups and participate, states that his mood and anxiety even mildly improving. At this time patient denies any suicidal or homical ideations, intent or plan. Patient denies any current auditory, visual hallucinations and denies any paranoia or delusions. Patient denies any side effects from the medications and has been compliant with meds. Mental Status Exam: General Appearance: Patient appears to be taller, disheveled hair, stated age is alert, directable, and attempts to cooperate. Patient appears to have mildly improving hygiene and grooming. Behavior: Patient is seated without any agitated behavior. Attempts to cooperate Speech: Patient's speech is fluent and nonpressured. [place] Mood/Affect: Patient reports their mood is "ok", affect is congruent and c onstricted. Suicidality/Homicidality: Patient denies having any homicidal ideation intent or plan. Denies any suicidal ideations intent or plan Perceptions: Patient denies any visual hallucinations and denies any auditory hallucinations Though content/process: There is no evidence of any delusional thought content and thought process is linear and goal-directed. [place]. Memory and concentration: AOX3, grossly intact for the purposes of this session Judgment and insight: Improving mildly IMPRESSIONS: Psychosis NOS r/o Alcohol hallucinosis vs brief psychotic disorder alcohol use disorder severe dependence hx of depression PLAN: -Patient is admitted under voluntary status to MHU for stabilization of psychiatric symptoms and safety. Patient has signed adult voluntary form and medication consent and is placed in patient's chart. -Medications : decrease scheduled Librium 10 mg 4 times a day with plan to decrease/taper off by tomorrow. continue Zyprexa 2.5 mg qhs for mood stabiliz ation/psychosis. celexa 20 mg daily for mood/anxiety -zyprexa PRN for agitation/aggression -thiamine, MVM for etoh use -CIWA protocol with Ativan PRN for ETOH withdrawal -Patient was counselled on substance abuse and desired to cut back on use however declined any anti cravings meds and also decline rehab. -NRT - not needed as patient does not smoke -SW on board for discharge planning. Encourage patient to participate in groups to work on coping skills. due to patients history of severe etoh withdrawals and hallucinations, will need to continue monitoring and decreasing/tapering off librium and evaluating ciwas for one more day. if patient continues to do well then likely discharge tomorrow back home. he is declining rehab at this time.
[2023-05-04] MEDS: LORazepam 1 MG TAB PO PRN (18:18)
[2023-05-04] MEDS: MAG HYDROX/AL HYDROX/SIMETH 30 ML CUP PO PRN (19:10)
[2023-05-04] MEDS: OLANZapine 2.5 MG TAB PO SCH (20:37)
[2023-05-04] MEDS: PANTOPRAZOLE 40 MG TABLET PO SCH (20:39)
[2023-05-05] MEDS: MAG HYDROX/AL HYDROX/SIMETH 30 ML CUP PO PRN (00:05)
[2023-05-05] MEDS: LORazepam 1 MG TAB PO PRN (00:06)
[2023-05-05 06:57] VITALS: BP 108/72; PULSE 55; RESP 18; TEMP 96.8
[2023-05-05] MEDS: MULTIVITAMINS, THERA 1 EACH TAB PO SCH (09:06)
[2023-05-05] MEDS: NICOTINE 14MG/24HR PATCH TRANSDERM SCH (09:06)
[2023-05-05] MEDS: METOPROLOL TARTRATE 50 MG TAB PO SCH (09:07)
[2023-05-05] MEDS: amLODIPine 10 MG TAB PO SCH (09:07)
[2023-05-05] MEDS: FOLIC ACID 1 MG TAB PO SCH (09:07)
[2023-05-05] MEDS: PANTOPRAZOLE 40 MG TABLET PO SCH (09:07)
[2023-05-05] MEDS: lisinopriL 20 MG TAB PO SCH (09:07)
[2023-05-05] MEDS: CITALOPRAM HYDROBROMIDE 20 MG TAB PO SCH (09:07)
[2023-05-05] MEDS: prednisoLONE ACETATE 1% OPHTH DROPS 5 ML BTL BOTH EYES SCH (09:08)
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
== END 2023-05-05 14:18 | disposition home or self-care (01) | DRG 897 ==
LOC: EC 09:43 → 3MHU 19:40
PROVIDERS: ADMIT Psychiatry & Neurology Psychiatry; ATTEND Psychiatry & Neurology Psychiatry
DX: F10.259 Alcohol dependence with alcohol-induced psychotic disorder, unspecified (principal); R45.851 Suicidal ideations; Z20.822 Contact with and (suspected) exposure to COVID-19; Z28.21 Immunization not carried out because of patient refusal; M06.9 Rheumatoid arthritis, unspecified; Z60.2 Problems related to living alone; F90.9 Attention-deficit hyperactivity disorder, unspecified type; H54.8 Legal blindness, as defined in USA; F41.9 Anxiety disorder, unspecified; J44.9 Chronic obstructive pulmonary disease, unspecified; G83.21 Monoplegia of upper limb affecting right dominant side; K21.9 Gastro-esophageal reflux disease without esophagitis; G47.00 Insomnia, unspecified; Z79.899 Other long term (current) drug therapy; F17.210 Nicotine dependence, cigarettes, uncomplicated; R45.1 Restlessness and agitation; Z88.5 Allergy status to narcotic agent; Z88.0 Allergy status to penicillin
CPT/HCPCS: 80053; 80061; 80306; 82075; 83036; 84443; 85025; 87635; 96372; 96374; 99285

== ENCOUNTER 2023-09-06 18:42 | Observation (INO) | payer MEDICARE ==
[2023-09-06] MEDS ORDERED: ZIPRASIDONE 20 MG VIAL IM STA (18:56)
[2023-09-06] MEDS ORDERED: LORazepam 2 MG/ML INJ IV PRN (18:57)
[2023-09-06] MEDS ORDERED: THIAMINE 100 MG/ML 2 ML VIAL IM STA (18:57)
[2023-09-06] MEDS ORDERED: SODIUM CHLORIDE 0.9% 1,000 ML IV ONE (18:57)
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
[2023-09-06 20:14] LABS: Amphetamine Screen,Urine Not Detected (NotDetected); Barbiturate Screen,Urine Not Detected (NotDetected); Benzodiazepines Screen,Urine Not Detected (NotDetected); Cocaine Screen,Urine Not Detected (NotDetected); Methadone Screen, Urine Not Detected (NotDetected); Opiate Screen,Urine Not Detected (NotDetected); Oxycodone Screen, Urine Not Detected (NotDetected); Phencyclidine Screen,Urine Not Detected (NotDetected); Tricyclic Antidepressant,Urine Not Detected (NotDetected); Urn Cannabinoid Scrn Not Detected (NotDetected)
[2023-09-06 20:16] LABS: ALT 154 U/L (4-49); AST 152 U/L (17-59); African American GFR (CKD) >90 (>60 ml/min/1.73 sqM); Albumin 4.3 g/dL (3.5-5.0); Alkaline Phosphatase 90 U/L (38-126); Anion Gap 11 mmol/L; Blood Urea Nitrogen 12 mg/dL (9-20); Calcium 8.4 mg/dL (8.4-10.2); Carbon Dioxide 24 mmol/L (22-30); Chloride 114 mmol/L (98-107); Glucose 92 mg/dL (74-99); Non-African American GFR(CKD) >90 (>60 ml/min/1.73 sqM); Potassium 3.8 mmol/L (3.5-5.1); Sodium 149 mmol/L (137-145); Total Bilirubin 0.7 mg/dL (0.2-1.3); Total Protein 7.1 g/dL (6.3-8.2)
--- NOTE | 2023-09-06 20:48 | CT ---
EXAMINATION TYPE: CT brain wo con CT DLP: 1366.4 mGycm, Automated exposure control for dose reduction was used. DATE OF EXAM: 09/06/2023 8:31 PM COMPARISON: 10/17/2019. CLINICAL INDICATION:Male, 42 years old with history of agitation. etoh. history of closed head injury , ETOH TECHNIQUE: Brain: Axial CT images of the brain were obtained with coronal and sagittal reformats created and rev iewed. Contrast used: None. Oral contrast used: None. FINDINGS: Brain: Extra-axial spaces: No abnormal extra-axial fluid collections. Ventricular system: Within normal limits Cerebral parenchyma: No acute intraparenchymal hemorrhage or mass effect. The ortega-white junction is well differentiated. Cerebellum: Unremarkable. Mass effect: No evidence of midline shift. Intracranial vasculature: unremarkable Soft tissues: Normal. Calvarium/osseous structures: No depressed skull fracture. Paranasal sinuses and mastoid air cells: Mild scattered paranasal sinus disease. Visualized orbits: Bilateral aphakia IMPRESSION: No acute intracranial process.
[2023-09-06 20:59] LABS: Alcohol 407 mg/dL
[2023-09-06 21:37] LABS: Basophils % (A) 1 %; Eosinophils % (A) 0 %; HGB 14.9 gm/dL (13.0-17.5); Lymphocytes % (A) 37 %; MCH 32.6 pg (25.0-35.0); MCHC 33.9 g/dL (31.0-37.0); Mean Platelet Volume 7.5; Monocytes # (A) 0.1 k/uL (0-1.0); Monocytes % (A) 4 %; Neutrophils # (A) 1.5 k/uL (1.3-7.7); Neutrophils % (A) 57 %; Platelet Count 156 k/uL (150-450); RBC 4.58 m/uL (4.30-5.90); RDW 14.2 % (11.5-15.5); WBC 2.6 k/uL (3.8-10.6)
[2023-09-06] MEDS ORDERED: NALOXONE 0.4 MG/ML 1 ML VIAL IV PRN (21:49)
[2023-09-06] MEDS: SODIUM CHLORIDE 0.9% 1,000 ML IV SCH (22:46)
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
[2023-09-07] MEDS: HEPARIN SODIUM,PORCINE 5,000 UNIT/ML 1 ML VIAL SQ SCH ×3 (05:56→18:50)
[2023-09-07] MEDS: amLODIPine 10 MG TAB PO SCH (08:05)
[2023-09-07] MEDS: MULTIVITAMINS, THERA 1 EACH TAB PO SCH (08:05)
[2023-09-07] MEDS: PANTOPRAZOLE 40 MG TABLET PO SCH (08:05)
[2023-09-07] MEDS: NICOTINE 14MG/24HR PATCH TRANSDERM SCH (08:05)
[2023-09-07] MEDS: THIAMINE 100 MG TAB PO SCH (08:05)
[2023-09-07] MEDS: METOPROLOL TARTRATE 50 MG TAB PO SCH ×2 (08:05→21:41)
[2023-09-07] MEDS: prednisoLONE ACETATE 1% OPHTH DROPS 5 ML BTL BOTH EYES SCH ×2 (08:06→22:01)
[2023-09-07 08:13] LABS: Basophils % (A) 0 %; Eosinophils % (A) 1 %; HCT 41.5 % (39.0-53.0); HGB 14.1 gm/dL (13.0-17.5); Lymphocytes # (A) 1.1 k/uL (1.0-4.8); Lymphocytes % (A) 31 %; MCH 32.6 pg (25.0-35.0); MCHC 33.9 g/dL (31.0-37.0); Monocytes # (A) 0.2 k/uL (0-1.0); Monocytes % (A) 5 %; Neutrophils # (A) 2.2 k/uL (1.3-7.7); Neutrophils % (A) 61 %; Platelet Count 148 k/uL (150-450); RBC 4.33 m/uL (4.30-5.90); RDW 14.1 % (11.5-15.5); WBC 3.7 k/uL (3.8-10.6)
[2023-09-07] MEDS: LORazepam 2 MG/ML INJ IV PRN ×4 (08:20→22:06)
[2023-09-07 08:46] LABS: ALT 126 U/L (4-49); AST 124 U/L (17-59); African American GFR (CKD) >90 (>60 ml/min/1.73 sqM); Albumin 4.1 g/dL (3.5-5.0); Albumin/Globulin Ratio 1.6; Alkaline Phosphatase 69 U/L (38-126); Anion Gap 12 mmol/L; Blood Urea Nitrogen 14 mg/dL (9-20); Calcium 8.4 mg/dL (8.4-10.2); Carbon Dioxide 22 mmol/L (22-30); Chloride 108 mmol/L (98-107); Globulin 2.6 g/dL; Glucose 74 mg/dL (74-99); Non-African American GFR(CKD) >90 (>60 ml/min/1.73 sqM); Potassium 3.3 mmol/L (3.5-5.1); Sodium 142 mmol/L (137-145); Total Bilirubin 1.2 mg/dL (0.2-1.3); Total Protein 6.7 g/dL (6.3-8.2)
[2023-09-07] MEDS ORDERED: THIAMINE 100 MG/ML 2 ML VIAL IVP SCH (09:00)
[2023-09-07] MEDS ORDERED: POTASSIUM CHLORIDE 20 MEQ in WATER FOR INJECTION 1 100ML.BAG IVPB STA (18:28)
[2023-09-07] MEDS: SODIUM CHLORIDE 0.9% 1,000 ML IV SCH (18:51)
[2023-09-07] MEDS: ALBUTEROL HFA INHALER INHALATION PRN (21:04)
[2023-09-07] MEDS: IPRATROPIUM-ALBUTEROL 3 ML NEB INHALATION SCH (21:07)
[2023-09-07] MEDS: NALTREXONE HCL 50 MG TAB PO SCH (21:41)
[2023-09-07] MEDS: OLANZapine 5 MG TAB PO SCH ×2 (21:41→22:01)
[2023-09-08] MEDS: HEPARIN SODIUM,PORCINE 5,000 UNIT/ML 1 ML VIAL SQ SCH ×2 (00:47→10:08)
[2023-09-08] MEDS: SODIUM CHLORIDE 0.9% 1,000 ML IV SCH (00:47)
[2023-09-08] MEDS: LORazepam 2 MG/ML INJ IV PRN ×3 (04:01→10:16)
[2023-09-08 05:01] VITALS: RESP 22
[2023-09-08] MEDS: PANTOPRAZOLE 40 MG TABLET PO SCH (07:46)
[2023-09-08] MEDS: amLODIPine 10 MG TAB PO SCH (07:46)
[2023-09-08] MEDS: MULTIVITAMINS, THERA 1 EACH TAB PO SCH (07:46)
[2023-09-08] MEDS: prednisoLONE ACETATE 1% OPHTH DROPS 5 ML BTL BOTH EYES SCH (07:47)
[2023-09-08] MEDS: NICOTINE 14MG/24HR PATCH TRANSDERM SCH (07:47)
[2023-09-08] MEDS: METOPROLOL TARTRATE 50 MG TAB PO SCH (07:47)
[2023-09-08] MEDS: NALTREXONE HCL 50 MG TAB PO SCH (07:47)
[2023-09-08] MEDS: ALBUTEROL HFA INHALER INHALATION PRN (09:22)
[2023-09-08] MEDS: IPRATROPIUM-ALBUTEROL 3 ML NEB INHALATION SCH (09:23)
[2023-09-08 09:35] VITALS: BP 184/99; PULSE 95; TEMP 97.8
[2023-09-08] MEDS: THIAMINE 100 MG TAB PO SCH (10:08)
== END 2023-09-08 11:56 | disposition left against medical advice (07) ==
LOC: EC 18:42 → 6NMEDSUR 21:49
PROVIDERS: ADMIT Family Medicine; ATTEND Family Medicine
DX: F10.239 Alcohol dependence with withdrawal, unspecified (principal); F10.229 Alcohol dependence with intoxication, unspecified; R45.1 Restlessness and agitation; I10 Essential (primary) hypertension; J44.9 Chronic obstructive pulmonary disease, unspecified; K21.9 Gastro-esophageal reflux disease without esophagitis; F90.9 Attention-deficit hyperactivity disorder, unspecified type; F17.200 Nicotine dependence, unspecified, uncomplicated; Z87.820 Personal history of traumatic brain injury; Z79.899 Other long term (current) drug therapy; Z88.0 Allergy status to penicillin; Y90.8 Blood alcohol level of 240 mg/100 ml or more
CPT/HCPCS: 96376 ×2; 96361 ×3; 96365; 96366 ×2; 96372 ×2; 96375; 99285; 36415; 94640 ×2; 93005; 80053 ×2; 85025 ×2; 80306; 70450; G0378 ×3; G0480; S4990 ×2; J2060 ×2; J1644; J3411 ×2; J3480; J3486; 80320

== ENCOUNTER 2023-09-09 04:51 | Inpatient (IN) | payer MEDICARE ==
[2023-09-09] MEDS ORDERED: LORazepam 2 MG/ML INJ IV STA (04:58)
[2023-09-09] MEDS ORDERED: SODIUM CHLORIDE 0.9% 1,000 ML IV ONE (04:59)
[2023-09-09 05:44] LABS: Appearance,Urine Clear (Clear); Color,Urine Orange; PH, Urine 6.5 (5.0-8.0); Protein,Urine 3+ (Negative); Specific Gravity,Urine >1.030 (1.001-1.035)
[2023-09-09 05:45] LABS: Bilirubin,Urine 1+ (Negative); Blood,Urine Moderate (Negative); Glucose,Urine (UA) Negative (Negative); Ketones,Urine 1+ (Negative); Leukocyte Esterase,Urine Negative (Negative); Nitrite,Urine Negative (Negative)
[2023-09-09 05:47] LABS: Calcium Oxalate Crystals,Urine Few /hpf; Hyaline Casts,Urine 18 /lpf (0-2); Mucus,Urine Many /hpf; RBC,Urine 33 /hpf (0-5); Squamous Epithelial Cell,Urine <1 /hpf (0-4); WBC,Urine 2 /hpf (0-5)
[2023-09-09 05:52] LABS: ALT 120 U/L (4-49); AST 94 U/L (17-59); African American GFR (CKD) >90 (>60 ml/min/1.73 sqM); Albumin 5.2 g/dL (3.5-5.0); Alcohol <10 mg/dL; Alkaline Phosphatase 104 U/L (38-126); Anion Gap 14 mmol/L; Blood Urea Nitrogen 21 mg/dL (9-20); Calcium 11.1 mg/dL (8.4-10.2); Carbon Dioxide 21 mmol/L (22-30); Chloride 102 mmol/L (98-107); Creatine Kinase 185 U/L (55-170); Glucose 108 mg/dL (74-99); Non-African American GFR(CKD) >90 (>60 ml/min/1.73 sqM); Potassium 3.2 mmol/L (3.5-5.1); Sodium 137 mmol/L (137-145); Total Bilirubin 1.3 mg/dL (0.2-1.3); Total Protein 8.6 g/dL (6.3-8.2)
[2023-09-09 05:53] LABS: Basophils % (A) 0 %; Eosinophils # (A) 0.1 k/uL (0-0.7); Eosinophils % (A) 1 %; HCT 46.8 % (39.0-53.0); Lymphocytes # (A) 1.1 k/uL (1.0-4.8); Lymphocytes % (A) 17 %; MCH 32.4 pg (25.0-35.0); MCHC 34.2 g/dL (31.0-37.0); Mean Platelet Volume 8.4; Monocytes # (A) 0.3 k/uL (0-1.0); Monocytes % (A) 5 %; Neutrophils % (A) 76 %; Platelet Count 133 k/uL (150-450); RBC 4.93 m/uL (4.30-5.90); RDW 14.1 % (11.5-15.5); WBC 6.5 k/uL (3.8-10.6)
[2023-09-09 05:54] LABS: Amphetamine Screen,Urine Not Detected (NotDetected); Barbiturate Screen,Urine Not Detected (NotDetected); Benzodiazepines Screen,Urine Detected (NotDetected); Cocaine Screen,Urine Not Detected (NotDetected); Methadone Screen, Urine Not Detected (NotDetected); Opiate Screen,Urine Not Detected (NotDetected); Oxycodone Screen, Urine Not Detected (NotDetected); Phencyclidine Screen,Urine Not Detected (NotDetected); Tricyclic Antidepressant,Urine Detected (NotDetected); Urn Cannabinoid Scrn Not Detected (NotDetected)
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
[2023-09-09] MEDS ORDERED: NALOXONE 0.4 MG/ML 1 ML VIAL IV PRN (06:18)
[2023-09-09] MEDS ORDERED: THIAMINE 100 MG/ML 2 ML VIAL IM STA (06:19)
[2023-09-09] MEDS ORDERED: LORazepam 2 MG/ML INJ IV PRN (06:19)
[2023-09-09] MEDS: LORazepam 2 MG/ML INJ IV PRN ×3 (06:35→18:57)
[2023-09-09] MEDS ORDERED: chlordiazePOXIDE 25 MG CAP PO SCH (12:45)
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
[2023-09-09] MEDS: chlordiazePOXIDE 25 MG CAP PO SCH ×2 (16:49→21:41)
[2023-09-09] MEDS: SERTRALINE 50 MG TAB PO SCH (21:42)
[2023-09-09] MEDS: PALIPERIDONE 3 MG TAB.ER.24 PO SCH (21:42)
[2023-09-10] MEDS: LORazepam 2 MG/ML INJ IV PRN ×5 (00:11→21:49)
[2023-09-10 08:21] LABS: Basophils % (A) 0 %; Eosinophils # (A) 0.1 k/uL (0-0.7); Eosinophils % (A) 3 %; HCT 43.4 % (39.0-53.0); HGB 14.5 gm/dL (13.0-17.5); Lymphocytes # (A) 1.4 k/uL (1.0-4.8); Lymphocytes % (A) 37 %; MCHC 33.4 g/dL (31.0-37.0); Mean Platelet Volume 8.9; Monocytes # (A) 0.2 k/uL (0-1.0); Monocytes % (A) 6 %; Neutrophils % (A) 52 %; Platelet Count 111 k/uL (150-450); RBC 4.52 m/uL (4.30-5.90); RDW 14.2 % (11.5-15.5); WBC 3.8 k/uL (3.8-10.6)
[2023-09-10 10:43] LABS: African American GFR (CKD) >90 (>60 ml/min/1.73 sqM); Anion Gap 15 mmol/L; Blood Urea Nitrogen 19 mg/dL (9-20); Calcium 9.6 mg/dL (8.4-10.2); Carbon Dioxide 17 mmol/L (22-30); Chloride 108 mmol/L (98-107); Glucose 85 mg/dL (74-99); Non-African American GFR(CKD) >90 (>60 ml/min/1.73 sqM); Sodium 140 mmol/L (137-145)
[2023-09-10] MEDS: THIAMINE 100 MG TAB PO SCH (10:50)
[2023-09-10] MEDS: chlordiazePOXIDE 25 MG CAP PO SCH (10:50)
[2023-09-10] MEDS ORDERED: Potassium Replacement Protocol 1 EACH MISC MISCELLANE PRN (10:57)
[2023-09-10] MEDS ORDERED: POTASSIUM CHLORIDE ER 20 MEQ TAB.ER PO ONE (11:30)
[2023-09-10] MEDS ORDERED: LORazepam 1 MG TAB PO PRN (13:28)
[2023-09-10] MEDS: SYMBICORT 160-4.5 MCG INHALER INHALATION SCH (20:15)
[2023-09-10] MEDS ORDERED: ATORVASTATIN 40 MG TAB PO SCH (21:00)
[2023-09-10] MEDS: prednisoLONE ACETATE 1% OPHTH DROPS 5 ML BTL BOTH EYES SCH (21:48)
[2023-09-10] MEDS: PALIPERIDONE 3 MG TAB.ER.24 PO SCH (21:48)
[2023-09-10] MEDS: SERTRALINE 50 MG TAB PO SCH (21:48)
[2023-09-10] MEDS: METOPROLOL TARTRATE 50 MG TAB PO SCH (21:49)
--- NOTE | 2023-09-10 21:56 | HP ---
HISTORY AND PHYSICAL HISTORY OF PRESENT ILLNESS: A 42-year-old white male, EMS for hallucinations, found wandering on the streets. He has seen dark shadows . He does have psychiatric illness. He has alcohol abuse. He had signed out AMA the day before from our hospital. He is going through alcohol withdrawal. He has alcohol withdrawal seizures. He has some mental health history. He says he is stable mentally at this time. Currently, he is more obtunded. MEDICATIONS: 1. Lopressor 100 b.i.d. 2. Lisinopril 40 daily. 3. Prednisolone acetate 1% 1 drop both eyes b.i.d. 4. Norvasc 10 mg daily. 5. Lipitor 40 mg daily. 6. Multivitamin daily. 7. Ativan 1 mg daily. 8. Singulair 10 mg daily. 9. Omeprazole 20 mg daily. 10.Zoloft 50 mg daily. ALLERGIES: Caffeine, penicillin, Seroquel. REVIEW OF SYSTEMS: A 14-point review of systems, he is more obtunded and very sleepy, lethargic, unable to give a lot of answers. PAST MEDICAL HISTORY: COPD, GERD, hypertension, rheumatoid arthritis, legally blind, alcoholism. SOCIAL HISTORY: Current daily smoker and alcoholic. FAMILY HISTORY: Yes, alcoholism. PHYSICAL EXAMINATION: VITAL SIGNS: Blood pressure is 119 to 155 over 82 to 101, O2 saturation 95%to 98%, temp 97.7, pulse is 92 to 143, respiratory rate 18 to 20. CARDIOVASCULAR: S1, S2. LUNGS: Decreased breath sounds. GI: Soft. NEUROLOGIC: Cranial nerves intact. PSYCH: Fair mood and affect. SKIN: Warm, dry, intact. OPHTHALMOLOGIC: Pupils equal, round, reactive. ASSESSMENT: Altered mental status secondary to alcoholism and alcohol intoxication, mental health disorder. Psychiatry is consulted. Treat him with alcohol withdrawal. Treat him for his terrible breathing. He says he has home inhalers at this point. Acute psychosis secondary to alcohol withdrawal, visual hallucinations. Prognosis guarded. MMODL / IJN: [id number] /
[2023-09-11] MEDS: LORazepam 2 MG/ML INJ IV PRN (04:01)
[2023-09-11] MEDS ORDERED: PANTOPRAZOLE 40 MG TABLET PO SCH (07:30)
[2023-09-11] MEDS: SYMBICORT 160-4.5 MCG INHALER INHALATION SCH (08:11)
[2023-09-11 08:37] LABS: ALT 96 U/L (4-49); AST 63 U/L (17-59); African American GFR (CKD) >90 (>60 ml/min/1.73 sqM); Albumin 4.3 g/dL (3.5-5.0); Alkaline Phosphatase 100 U/L (38-126); Anion Gap 11 mmol/L; Blood Urea Nitrogen 26 mg/dL (9-20); Calcium 9.6 mg/dL (8.4-10.2); Carbon Dioxide 22 mmol/L (22-30); Chloride 106 mmol/L (98-107); Glucose 116 mg/dL (74-99); Non-African American GFR(CKD) >90 (>60 ml/min/1.73 sqM); Potassium 3.8 mmol/L (3.5-5.1); Sodium 139 mmol/L (137-145); Total Bilirubin 0.6 mg/dL (0.2-1.3); Total Protein 7.2 g/dL (6.3-8.2)
[2023-09-11] MEDS: prednisoLONE ACETATE 1% OPHTH DROPS 5 ML BTL BOTH EYES SCH (08:46)
[2023-09-11] MEDS: THIAMINE 100 MG TAB PO SCH (08:49)
[2023-09-11] MEDS: METOPROLOL TARTRATE 50 MG TAB PO SCH (08:49)
[2023-09-11] MEDS ORDERED: amLODIPine 10 MG TAB PO SCH (09:00)
[2023-09-11] MEDS ORDERED: lisinopriL 20 MG TAB PO SCH (09:00)
[2023-09-11] MEDS ORDERED: SERTRALINE 50 MG TAB PO SCH (09:00)
[2023-09-11] MEDS ORDERED: MONTELUKAST 10 MG TAB PO SCH (09:00)
[2023-09-11] MEDS ORDERED: FOLIC ACID-VIT B COMPLEX-VIT C 1 CAP PO SCH (09:00)
[2023-09-11 12:03] VITALS: BP 117/76; PULSE 80; RESP 14; TEMP 98
== END 2023-09-11 12:29 | disposition left against medical advice (07) | DRG 894 ==
LOC: EC 04:51 → 3SCARD 06:18 → OBSVTOIN 09-11 10:58
PROVIDERS: ADMIT Family Medicine; ATTEND Family Medicine
DX: F10.231 Alcohol dependence with withdrawal delirium (principal); F23 Brief psychotic disorder; F10.229 Alcohol dependence with intoxication, unspecified; J44.9 Chronic obstructive pulmonary disease, unspecified; F90.9 Attention-deficit hyperactivity disorder, unspecified type; Z71.41 Alcohol abuse counseling and surveillance of alcoholic; I10 Essential (primary) hypertension; F10.251 Alcohol dependence with alcohol-induced psychotic disorder with hallucinations; Z53.29 Procedure and treatment not carried out because of patient's decision for other reasons; H54.8 Legal blindness, as defined in USA; M06.9 Rheumatoid arthritis, unspecified; K21.9 Gastro-esophageal reflux disease without esophagitis; Z88.0 Allergy status to penicillin; Z88.8 Allergy status to other drugs, medicaments and biological substances; Z91.018 Allergy to other foods; Z87.19 Personal history of other diseases of the digestive system
CPT/HCPCS: 36415; 80048; 80053; 80306; 80320; 81001; 82075; 82550; 85025; 94640; 96361; 96372; 96374; 96376; 99285

== ENCOUNTER 2024-01-19 14:02 | Observation (INO) | payer MEDICARE ==
[2024-01-19] MEDS ORDERED: NALOXONE 0.4 MG/ML 1 ML VIAL IV PRN (14:24)
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
[2024-01-19] MEDS: THIAMINE 100 MG/ML 2 ML VIAL IM STA (15:12)
[2024-01-19] MEDS: SODIUM CHLORIDE 0.9% 1,000 ML IV STA (15:16)
[2024-01-19 15:25] LABS: Basophils % (A) 1 %; Eosinophils % (A) 1 %; HCT 45.7 % (39.0-53.0); HGB 15.5 gm/dL (13.0-17.5); Lymphocytes # (A) 1.3 k/uL (1.0-4.8); Lymphocytes % (A) 43 %; MCH 32.8 pg (25.0-35.0); MCHC 33.9 g/dL (31.0-37.0); MCV 96.7 fL (80.0-100.0); Mean Platelet Volume 8.2; Monocytes # (A) 0.2 k/uL (0-1.0); Monocytes % (A) 5 %; Neutrophils # (A) 1.4 k/uL (1.3-7.7); Neutrophils % (A) 48 %; Platelet Count 110 k/uL (150-450); RBC 4.73 m/uL (4.30-5.90); RDW 13.1 % (11.5-15.5)
[2024-01-19] MEDS: SODIUM CHLORIDE 0.9% 1,000 ML IV SCH (15:33)
[2024-01-19 15:48] LABS: ALT 155 U/L (4-49); AST 171 U/L (17-59); African American GFR (CKD) >90 (>60 ml/min/1.73 sqM); Albumin 4.6 g/dL (3.5-5.0); Alkaline Phosphatase 80 U/L (38-126); Anion Gap 11 mmol/L; Blood Urea Nitrogen 10 mg/dL (9-20); Calcium 9.1 mg/dL (8.4-10.2); Carbon Dioxide 28 mmol/L (22-30); Chloride 109 mmol/L (98-107); Glucose 94 mg/dL (74-99); Magnesium 1.8 mg/dL (1.6-2.3); Non-African American GFR(CKD) >90 (>60 ml/min/1.73 sqM); Potassium 3.8 mmol/L (3.5-5.1); Sodium 148 mmol/L (137-145); Total Bilirubin 0.7 mg/dL (0.2-1.3); Total Protein 7.2 g/dL (6.3-8.2)
[2024-01-19 16:02] LABS: Alcohol 388 mg/dL
[2024-01-19] MEDS: LORazepam 1 MG TAB PO PRN ×2 (18:27→23:49)
[2024-01-19] MEDS: NICOTINE 21MG/24HR PATCH TRANSDERM SCH (19:42)
[2024-01-20] MEDS: LORazepam 1 MG TAB PO PRN (04:49)
[2024-01-20] MEDS: LORazepam 2 MG/ML INJ IV PRN (08:13)
[2024-01-20] MEDS: THIAMINE 100 MG TAB PO SCH (08:13)
[2024-01-20] MEDS: NALTREXONE HCL 50 MG TAB PO SCH (16:10)
[2024-01-20] MEDS: amLODIPine 10 MG TAB PO SCH (20:30)
[2024-01-20] MEDS: METOPROLOL TARTRATE 50 MG TAB PO SCH (20:30)
--- NOTE | 2024-01-20 20:43 | HP ---
HISTORY AND PHYSICAL A 43-year-old male with ordered. HOME MEDICINES: Include, 1. Lopressor 100 b.i.d. 2. Lisinopril 40 daily. 3. Prednisone acetate drops daily b.i.d. 4. Amlodipine 10 mg daily. 5. Lipitor 40 mg daily. 6. Multivitamin daily. 7. Ativan 1 mg daily. 8. Singulair 10 mg daily. 9. Omeprazole 20 daily. 10.Zoloft 50 daily. ALLERGIES: Caffeine, penicillin, Seroquel. REVIEW OF SYSTEMS: Fourteen point review of systems otherwise negative. PAST MEDICAL HISTORY: COPD, GERD, hypertension, rheumatoid arthritis, alcoholism . SOCIAL HISTORY: Current everyday smoker. Alcohol abuse, heavy. FAMILY HISTORY: unknown. PHYSICAL EXAM: GENERAL: White male, in no acute distress. CARDIOVASCULAR: S1, S2. LUNGS: Transmitted upper sounds. HEMATOLOGY: Negative for Homans. OPHTHALMOLOGIC: Pupils equal, round, and reactive. NEUROLOGIC: Alert and oriented x3. PSYCH: Fair mood and affect. ASSESSMENT: Alcohol intoxication, hypertension acceleration. CIWA protocol. Restart home medicines. Prognosis guarded. Alcohol withdrawal counseling. psych consult. MARY JO / CADENCEN: [id number] /
[2024-01-20] MEDS: prednisoLONE ACETATE 1% OPHTH DROPS 5 ML BTL BOTH EYES SCH (21:17)
[2024-01-21] MEDS: PANTOPRAZOLE 40 MG TABLET PO SCH (06:33)
[2024-01-21 07:51] LABS: ALT 114 U/L (4-49); AST 81 U/L (17-59); African American GFR (CKD) >90 (>60 ml/min/1.73 sqM); Albumin 4.6 g/dL (3.5-5.0); Albumin/Globulin Ratio 1.8; Alkaline Phosphatase 65 U/L (38-126); Anion Gap 11 mmol/L; Blood Urea Nitrogen 15 mg/dL (9-20); Calcium 9.6 mg/dL (8.4-10.2); Carbon Dioxide 27 mmol/L (22-30); Chloride 101 mmol/L (98-107); Globulin 2.6 g/dL; Glucose 84 mg/dL (74-99); Non-African American GFR(CKD) >90 (>60 ml/min/1.73 sqM); Potassium 3.3 mmol/L (3.5-5.1); Sodium 139 mmol/L (137-145); Total Protein 7.2 g/dL (6.3-8.2)
[2024-01-21 07:52] LABS: Basophils % (A) 0 %; Eosinophils # (A) 0.1 k/uL (0-0.7); Eosinophils % (A) 2 %; HCT 45.5 % (39.0-53.0); HGB 15.9 gm/dL (13.0-17.5); Lymphocytes % (A) 22 %; MCH 33.4 pg (25.0-35.0); MCHC 34.9 g/dL (31.0-37.0); MCV 95.7 fL (80.0-100.0); Mean Platelet Volume 9.3; Monocytes # (A) 0.3 k/uL (0-1.0); Monocytes % (A) 6 %; Neutrophils % (A) 68 %; RBC 4.76 m/uL (4.30-5.90); RDW 13.1 % (11.5-15.5); WBC 4.5 k/uL (3.8-10.6)
[2024-01-21 08:28] LABS: Platelet Count 78 k/uL (150-450)
[2024-01-21] MEDS: FOLIC ACID 1 MG TAB PO SCH (09:46)
[2024-01-21] MEDS: lisinopriL 20 MG TAB PO SCH (09:46)
[2024-01-21] MEDS: MULTIVITAMINS, THERA 1 EACH TAB PO SCH (09:46)
[2024-01-21] MEDS: THIAMINE 100 MG TAB PO SCH (09:47)
[2024-01-21] MEDS: POTASSIUM CHLORIDE ER 20 MEQ TAB.ER PO STA (12:38)
[2024-01-21] MEDS: LORazepam 0.5 MG TAB PO PRN (12:44)
--- NOTE | 2024-01-21 13:20 | PN ---
PROGRESS NOTE SUBJECTIVE: Kye Moses came in with alcohol withdrawal. We will start him on naltrexone for alcohol suppression medicine. He is on his hypertension medicine from home. His potassium level is 3.0. We are going to replace today. His blood pressure is down from 160s to 148/95, O2 saturation 98 on room air, pulse 78, respiratory rate 16, temp 97.6. The patient has hypokalemia, alcohol dependence, alcohol withdrawal. Check ammonia levels. Replace potassium for severe hypokalemia. Continue on naltrexone for alcohol suppression medicines and does not want a psychiatrist for depression. He has a counselor outpatient he goes to twice a week. Does not go to AA. He needs to be set up with AA. Nicotine addiction, probable COPD. Nicotine cessation, alcohol cessation discussed. He has elevated D-dimer, we have to order a CTA of the chest for that. PROGNOSIS: Guarded. MMODL / IJN: [id number] /
--- NOTE | 2024-01-21 17:01 | CT ---
EXAMINATION TYPE: CT angio chest CT DLP: 269 mGycm, Automated exposure control for dose reduction was used. DATE OF EXAM: 01/21/2024 4:51 PM COMPARISON: Chest radiograph from 11/17/ CLINICAL INDICATION:Male, 43 years old with history of elevated d-dimer; elevated d-dimer TECHNIQUE/CONTRAST: CTA scan of the thorax is performed with IV Contrast, patient injected with 100ml mL of Isovue 300, M IP images are created and reviewed these are created on a separate workstation.. FINDINGS: Pulmonary Artery: There is no evidence for a filling defect within the pulmonary vasculature to sugge st acute pulmonary embolism. The pulmonary artery is of normal size. Lungs/Pleura: No evidence of focal consolidation, pleural effusion or pneumothorax. Airway: Large airways are patent. Heart: Heart is within normal limits for size. Vasculature: No evidence of aortic aneurysm. Mediastinum: No gross evidence of adenopathy. Musculoskeletal: Remote compression deformity of the T8 vertebral body with less than 10% height loss . Soft Tissues: Unremarkable. Lower neck: No significant findings. Upper Abdomen: Low-attenuation of the liver parenchyma, likely related to steatosis. IMPRESSION: 1. No evidence of pulmonary embolism. 2. Remote compression deformity of the T10 vertebral body with less than 10% height loss.
[2024-01-22 08:52] LABS: ALT 125 U/L (10-49); AST 85 U/L (14-35); Albumin 4.9 g/dL (3.8-4.9); Albumin/Globulin Ratio 1.88 Ratio (1.60-3.17); Alkaline Phosphatase 73 U/L (41-126); BUN/Creat Ratio 20.86 Ratio (12.00-20.00); Blood Urea Nitrogen 14.6 mg/dL (9.0-27.0); Calcium 10.3 mg/dL (8.7-10.3); Chloride 101 mmol/L (96-109); Globulin 2.6 g/dL (1.6-3.3); Glucose 106 mg/dL (70-110); Potassium 3.9 mmol/L (3.5-5.5); Sodium 139 mmol/L (135-145); Total Protein 7.5 g/dL (6.2-8.2)
[2024-01-22 09:43] VITALS: BP 134/89; PULSE 82; RESP 14; TEMP 98.2
[2024-01-22 10:23] LABS: Basophils # (A) 0.02 X 10*3/uL (0.00-0.10); Basophils % (A) 0.4 %; Eosinophils # (A) 0.06 X 10*3/uL (0.04-0.35); Eosinophils % (A) 1.2 %; HCT 46.3 % (39.6-50.0); HGB 16.2 g/dL (13.0-17.0); Lymphocytes # (A) 1.41 X 10*3/uL (0.90-5.00); Lymphocytes % (A) 28.4 %; MCH 32.1 pg (27.0-32.0); MCV 91.7 FL (80.0-97.0); Mean Platelet Volume 11.2 FL (9.5-12.2); Monocytes # (A) 0.34 X 10*3/uL (0.20-1.00); Monocytes % (A) 6.8 %; NRBC Per 100 WBC 0 X 10*3/uL (0.00-0.01); Neutrophils # (A) 3.12 X 10*3/uL (1.80-7.70); Neutrophils % (A) 62.8 %; Platelet Count 91 X 10*3/uL (140-440); RBC 5.05 X 10*6/uL (4.40-5.60); RBC Morphology Normal (Normal); RDW 12.1 % (11.5-14.5); WBC 4.97 X 10*3/uL (4.50-10.00)
== END 2024-01-22 14:27 | disposition home or self-care (01) ==
LOC: EC 14:02 → 6NMEDSUR 14:25
PROVIDERS: ADMIT Family Medicine; ATTEND Family Medicine
DX: F10.229 Alcohol dependence with intoxication, unspecified (principal); J44.9 Chronic obstructive pulmonary disease, unspecified; K21.9 Gastro-esophageal reflux disease without esophagitis; I10 Essential (primary) hypertension; M06.9 Rheumatoid arthritis, unspecified; F17.210 Nicotine dependence, cigarettes, uncomplicated; F90.9 Attention-deficit hyperactivity disorder, unspecified type; Y90.8 Blood alcohol level of 240 mg/100 ml or more; Z88.8 Allergy status to other drugs, medicaments and biological substances; Z79.899 Other long term (current) drug therapy
CPT/HCPCS: 96361 ×2; 96374; 99285; 36415; 85379; 80053 ×3; 82140; 83735 ×3; 85025 ×3; 71275; G0378 ×4; G0480; S4990 ×4; J2060; J3411; Q9967; 80320